=== PATIENT | male | born 1950 | race African-American/Black ===

== ENCOUNTER 2017-02-17 12:15 | Emergency (ER) | payer MEDICARE, MEDICAID ==
[~2017-02-17] VITALS: Ht 172.7 cm; Wt 67.0 kg
[2017-02-17 12:37] VITALS: BP 121/70
== END 2017-02-17 17:39 | disposition home or self-care (01) ==
LOC: ER 12:16
DX: L30.9 Dermatitis, unspecified (principal); L28.0 Lichen simplex chronicus; S40.212A Abrasion of left shoulder, initial encounter; X58.XXXA Exposure to other specified factors, initial encounter; Y93.89 Activity, other specified; Y92.89 Other specified places as the place of occurrence of the external cause
CPT/HCPCS: 99282

== ENCOUNTER 2017-12-21 12:35 | Emergency (ER) | payer OTHER, MEDICAID ==
[~2017-12-21] VITALS: Ht 170.2 cm; Wt 64.0 kg
[2017-12-21 16:20] VITALS: BP 105/68
== END 2017-12-21 16:25 | disposition home or self-care (01) ==
LOC: ER 14:39
DX: L03.114 Cellulitis of left upper limb (principal); R21 Rash and other nonspecific skin eruption
CPT/HCPCS: 99281; 99283